=== PATIENT | male | born 2000 | race African-American/Black ===

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

== ENCOUNTER 2023-06-20 19:55 | Emergency (ER) | payer BC, SELFPAY ==
[2023-06-20 19:56] VITALS: BP 131/73; PULSE 97; RESP 18; TEMP 36.6; O2SAT 100; BMI 22.5
--- NOTE | 2023-06-20 20:13 | CT_ITS ---
STUDY: CT BRAIN WITHOUT CONTRAST REASON FOR EXAM: Male, 23 years old. Seizure. RADIATION DOSAGE (If Supplied By Facility): CTDIvol = ( 44.99 ) mGy, DLP = ( 745.49 ) mGycm TECHNIQUE: Transaxial CT imaging of the brain was performed without administration of intravenous contrast material. Individualized dose optimization techniques were used for this CT. COMPARISON: No relevant priors. FINDINGS: Normal soft tissue structures. Normal calvarium. Normal size ventricles and extra-axial spaces for the patient''s age. Normal white matter tracts of the cerebral hemispheres. Normal basal ganglia and thalami. Normal brainstem. Normal cerebellum. There is no intracranial hemorrhage. There are no findings of an acute ischemic infarction. Normal visualized paranasal sinuses. CT/Brain/Head without Contrast IMPRESSION: Normal unenhanced CT scan of the brain. Electronically Signed: Coy Easley MD at 21:12 EDT ,
--- NOTE | 2023-06-20 20:13 | ED.RN ---
per Dr. Kraus, patient does not need a sitter at this time.
--- NOTE | 2023-06-20 20:17 | EDS_ITS ---
HPI History of Present Illness Chief Complaint: Seizure Informant: patient Narrative Narrative: Patient presents after possibly having a seizure while in a study group about 3 hours prior to evaluation here in the ER. He states he lost consciousness and was told by others at the group that he stiffened up and then was convulsing for couple minutes and eyes rolled back in his head. When he came to and was aware, he remembers sweating and having a left-sided headache which persists at this time. He states otherwise he feels fine. Did not bite his tongue or lose urinary continence. He has never had a seizure before and denies any family history of seizures that he knows of. He states this occurred around 5 in the evening, and he states last night he took a single prescription sleeping pill that someone gave him along with some alcohol with his goal being to go to sleep. He denies any suicidal ideation or attempt. He states other than that he has vaped nicotine lately but no substances and does not smoke cigarettes. 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 Patient denies any recent illness and denies any recent injury to his head or anything else. [facility] Medical History (Updated 06/20/23 @ 22:[address] Coy Kraus MD) Anxiety Medical History no medical history Home Medications hydroxyzine HCl 25 mg tablet 25 mg PO TID PRN Anxiety 06/17/21 [History Last Taken Unknown] Allergy/AdvReac Type Severity Reaction Status Date / Time pollen extracts Allergy Mild SNEEZE Verified 06/20/23 19:58 Social History (Updated 06/20/23 @ 20:[address] Coy Kraus MD) housing: other details: College dorm Smoking Status: Former smoker substance use type: does not use ROS ROS ED Constitutional Constitutional ED: Reports sweats; Denies chills or fever(s) Eyes Eyes: Denies change in vision or diplopia ENT ENT ED: Denies rhinorrhea or sore throat Cardiovascular Cardiovascular: Denies chest pain or palpitations Respiratory/Chest Respiratory/Chest: Denies cough or dyspnea Gastrointestinal Gastrointestinal: Denies abdominal pain, diarrhea, nausea or vomiting Genitourinary Genitourinary ED: Denies dysuria or hematuria Musculoskeletal Musculoskeletal: Denies back pain or neck pain Integumentary Denies abscess or rash Neurologic Neurologic: Reports as per HPI, headache(s) and seizures; Denies paresthesias or weakness Psychiatric Psychiatric: Reports as per HPI, anxiety and depression; Denies homicidal ideation, suicidal ideation, suicidal thoughts or visual hallucinations EXAM Physical Exam Const Vital Signs: 06/20/23 19:56 06/20/23 20:21 06/20/23 21:28 Temperature 97.9 F Temperature Source Temporal Pulse Rate 97 81 70 Respiratory Rate 18 16 12 Blood Pressure 131/73 H 114/61 Blood Pressure Mean 92 78 Pulse Ox 100 97 100 Oxygen Delivery Method Room Air Room Air 06/20/23 22:00 Temperature Temperature Source Pulse Rate 82 Respiratory Rate 15 Blood Pressure 116/84 H Blood Pressure Mean 95 Pulse Ox 96 Oxygen Delivery Method Positive well nourished and well developed Constitutional Narrative: Will-appearing, conversive in full senses, appropriate and cooperative General Appearance ED: well developed and NAD HEENT Reports moist mucous membranes HEENT Narrative: No evidence of tongue trauma normocephalic and atraumatic Eyes PERRL and EOMs intact bilaterally Neck full ROM and supple Resp normal respiratory effort and clear to auscultation bilaterally Cardio regular rate, regular rhythm and no murmurs Rate: Negative for tachycardic GI non-tender and non-distended Auscultation: normoactive bowel sounds Palpation: soft Back/Spine no CVA tenderness General Back: other FROM Extremity normal to inspection General Extremety ED: Negative for edema, pulses abnormal or tenderness General Extremity: Negative for edema or pulses abnormal Neuro oriented x3, CN's II-XII intact bilaterally and no sensory deficits noted Neuro Narrative: Normal [id number] and [id number] bilaterally. Normal gait. Sensorium / Orientation: awake and alert Motor Exam: strength 5/5 throughout Psych mental status grossly normal, thought process normal, cooperative, affect normal, speech normal, activity/motor behavior normal, denies hallucinations, denies homicidal ideation and denies suicidal ideation Skin no rashes or lesions noted and no wounds MDM MDM MDM Narrative Medical decision making narrative: Patient was observed while we did workup presuming he had a tonic-clonic seizure prior to arrival. His lactate is borderline but within normal limits at 1.7 arguing against a tonic-clonic seizure but does not rule it out. Given the history of depression and possible suicidal gesture, which the patient adamantly refutes, coingestants and toxicology were obtained, all of which was normal. The rest of his workup was normal including a CT of the head. I reviewed the images and report which I agree with. Patient had no more seizure activity here. At this time I do not think he needs to be put on antiepileptics given this but I would advise follow-up with neurology. Given appropriate discharge instructions and to return if he has another event. Also discussed with him again regarding depression and suicidal thoughts, he declines having any suicidal thoughts right now and declines and offered to have crisis to talk with him tonight. I am giving him crisis' phone number in case he has depression and suicidal thoughts and needs to reach out to someone for which he is grateful. Lab Data Attestation: I reviewed the patient's lab results. Labs: Laboratory Results - last 24 hr 06/20/23 06/20/23 20:27 21:25 WBC 7.1 RBC 5.28 Hgb 16.0 Hct 47.3 MCV 89.6 MCH 30.3 MCHC 33.8 RDW Std Deviation 39.6 RDW Coeff of Obie 12.0 Plt Count 183 MPV 11.4 Immature Gran % (Auto) 0.300 Neut % (Auto) 71.2 H Lymph % (Auto) 19.0 [place] % (Auto) 8.6 Eos % (Auto) 0.6 Baso % (Auto) 0.3 Absolute Neuts (auto) 5.0 Absolute Lymphs (auto) 1.34 Nucleated RBC % 0 Sodium 138 Potassium 4.1 Chloride 103 Carbon Dioxide 29.0 Anion Gap 6 BUN 14 Creatinine 1.27 Estim Creat Clear Calc 79.99 Est GFR (MDRD) Af Amer 92 Est GFR (MDRD) Non-Af 76 BUN/Creatinine Ratio 11.0 Glucose 102 Lactic Acid 1.7 Calcium 8.8 Total Bilirubin 2.10 H AST 21 ALT 23 Alkaline Phosphatase 79 Total Protein 7.4 Albumin 3.9 Globulin 3.5 Albumin/Globulin Ratio 1.1 Salicylates < 1.7 L Urine Opiates Screen NEGATIVE Urine Methadone Screen NEGATIVE Acetaminophen < 2.0 L Ur Barbiturates Screen NEGATIVE Ur Phencyclidine Scrn NEGATIVE Ur Amphetamines Screen NEGATIVE MDMA (Ecstasy) Screen NEGATIVE U Benzodiazepines Scrn NEGATIVE Urine Cocaine Screen NEGATIVE U Cannabinoids Screen NEGATIVE Ur Drug Screen Comment Ethyl Alcohol < 3.0 Radiography Diagnostic Testing: Clinical Impression(s) from Imaging Studies Brain CT 06/20/23 20:13 IMPRESSION: Normal unenhanced CT scan of the brain. Electronically Signed: Coy Easley MD at 21:12 EDT Reading Location ID and State: [address] [place] [address] , Service support , Rhythm Strip Rhythm Strip: Sinus Rhythm Rate: 70 Ectopy: None EKG Initial EKG: Attestation: I personally reviewed and interpreted this EKG as follows: Interpretation: Sinus Rhythm and No Acute Injury Pattern Comments: Normal EKG Management Discussion w/another healthcare provider: Behavioral health Discharge Plan Triage Chief Complaint: Seizure ED Provider: Coy Kraus Dx/Rx/DC Orders Clinical Impression: Seizure-like activity Instructions: ED Seizure New [facility] Adult Prescriptions: No Action hydroxyzine HCl 25 mg tablet 25 mg PO TID PRN (Reason: Anxiety) Patient Comments: Take one tablet three times a day as needed for anxiety. Primary Care Provider: Care Physician,No Primary Referrals: Avery Rodriguez MD [Non-Staff -Ordering Privileges] - As soon as possible (Call for appointment) Care Physician,No Primary [Primary Care Provider] - Disposition Disposition: Home, Self Care
[2023-06-20 20:21] VITALS: BP 114/61; PULSE 81; RESP 16; O2SAT 97
[2023-06-20 20:34] LABS: Absolute Lymphocyte Count 1.34 X10^3/uL (0.83-4.51); Basophil# 0.02 X10^3/uL; Basophil% 0.3 % (0-1); Eosinophil# 0.04 X10^3/uL; Eosinophils% 0.6 % (0-5); Hematocrit 47.3 % (40-54); Lymphocyte # 1.34 X10^3/ul (0.83-4.51); Mean Corp Hgb Conc 33.8 g/dL (32-36); Mean Corpuscular Hgb 30.3 pg (27.0-32.0); Mean Corpuscular Volume 89.6 fL (80-94); Mean Platelet Vol. 11.4 fl (6.2-12.0); Monocyte# 0.61 X10^3/uL; Monocyte% 8.6 % (0-10); NRBC Flagged by Analyzer 0 % (0-5); Neutrophil # 5.03 X10^3/uL (2.7-7.7); Neutrophil % 71.2 % (47-70); Platelet Count 183 K/mm3 (150-450); RBC Distribution Width SD 39.6 fl (35.1-43.9); Red Blood Count 5.28 M/mm3 (4.6-6.2); White Blood Count 7.1 K/mm3 (4.4-11.0)
[2023-06-20 20:49] LABS: Alcohol, Blood (Medical)-Serum < 3.0 mg/dL
[2023-06-20 20:53] LABS: ALB/GLOB Ratio 1.1 RATIO (0.9-2.4); AST(SGOT) 21 U/L (15-37); Alanine Aminotransfer ALT/SGPT 23 U/L (16-61); Albumin, Serum 3.9 g/dL (3.2-5.0); Alkaline Phosphatase 79 U/L (45-117); Anion Gap 6 (5-15); BUN 14 mg/dL (7-18); Calcium,Total 8.8 mg/dL (8.5-10.1); Chloride 103 mmol/L (98-107); Creatinine, Serum 1.27 mg/dL (0.70-1.30); EST Glomerular Filtration Rate 76 mL/min (>60); Est Glom Filt Rate - Afr Amer 92 mL/min (>60); Estimated Creatinine Clearance 79.99 ml/min; Globulin 3.5 g/dL (2.2-4.2); Glucose 102 mg/dL (74-106); Potassium 4.1 mmol/L (3.5-5.1); Protein, Total 7.4 g/dL (6.4-8.2); Sodium Level 138 mmol/L (136-145)
[2023-06-20 21:03] LABS: Lactic Acid 1.7 mmol/L (0.4-1.9)
[2023-06-20 21:11] LABS: Acetaminophen (Tylenol) Level < 2.0 ug/mL (10.0-30.0); Salicylate < 1.7 mg/dL (2.8-20.0)
[2023-06-20 21:28] VITALS: PULSE 70; RESP 12; O2SAT 100
[2023-06-20 22:00] VITALS: BP 116/84; PULSE 82; RESP 15; O2SAT 96
[2023-06-20 22:08] LABS: Amphetamine Urine VISTA NEGATIVE (<1000 ng/mL); Barbiturate Urine VISTA NEGATIVE (< 200 ng/mL); Benzodiazepine Urine VISTA NEGATIVE (< 200 ng/mL); Cocaine Urine VISTA NEGATIVE (< 300 ng/mL); Ecstacy Urine VISTA NEGATIVE (< 500 ng/mL); Methadone Urine VISTA NEGATIVE (< 300 ng/mL); PCP Urine VISTA NEGATIVE (< 25 ng/mL); THC Urine VISTA NEGATIVE (< 50 ng/mL); Vista UDS pH Range 7
[2023-06-20 22:49] VITALS: BP 125/79; PULSE 77; RESP 19; TEMP 36.8; O2SAT 99
== END 2023-06-20 22:56 | disposition home or self-care (01) ==
PROVIDERS: Emergency Provider Emergency Medicine; Visit Provider Emergency Medicine
DX: R56.9 Unspecified convulsions (principal); Z87.891 Personal history of nicotine dependence; F41.9 Anxiety disorder, unspecified; Z79.899 Other long term (current) drug therapy
CPT/HCPCS: 70450; 80053; 80307; 80320; 80329; 83605; 85025; 93005; 99284; A4216; G0480